=== PATIENT | female | born 1995 | race Two or more races ===

== ENCOUNTER 2024-10-19 12:31 | Emergency (ER) | payer MEDICAID, OTHER ==
[~2024-10-19] VITALS: Ht 170.2 cm; Wt 61.2 kg
[~2024-10-19 12:31] MED LIST: GABA800T PO; OXCA300T4 PO; PROP20TA7 PO; TOPI25TA PO
[2024-10-19 12:38] VITALS: BP 107/60; TEMP 98
[2024-10-19] MEDS ORDERED: SULF1TAB48 PO (13:03)
[2024-10-19 13:16] VITALS: O2SAT 97
== END 2024-10-19 13:17 | disposition home or self-care (01) ==
LOC: ER 12:37
DX: L03.114 Cellulitis of left upper limb (principal); R51.9 Headache, unspecified; R56.9 Unspecified convulsions; I25.2 Old myocardial infarction; Z79.899 Other long term (current) drug therapy